=== PATIENT | male | born 1945 | race Caucasian/White ===

== ENCOUNTER → 2017-11-24 13:43 | Day surgery (SDC) | payer BC ==
[~2017-11-24 13:43] MED LIST: Buffered Lidocaine 0.9% SYRIN* 5 ML/SYR SYRINGE INTRADERM ONE; Buffered Lidocaine 0.9% SYRIN* 5 ML/SYR SYRINGE ONE; Bupivacaine 0.25% SDV* 30 ML ONE; Dexamethasone IV* 4 MG/ML 1 ML (4 MG) ONE; HYDROcodone/ACETAMIN 5-325 MG* 1 TAB PO PRN; Ketorolac INJ* 30 MG/ML 1 ML VIAL ONE; Midazolam concentrated* 5 MG/ML 1 ml VIAL ONE; Naloxone* 0.4 MG/ML 1 ML VIAL IV PRN; Ondansetron INJ* 2 MG/ML VIAL IV PRN; Ondansetron INJ* 2 MG/ML VIAL ONE; Propofol* 10 MG/ML 20 ML BTL IV PUSH ONE; ceFAZolin 2 GM PREMIX (*) 2 GM/50 ML BAG IVPB ONE; fentaNYL* 50 MCG/ML 2 ML VIAL (100 MCG VIAL) IV PRN; fentaNYL* 50 MCG/ML 2 ML VIAL (100 MCG VIAL) ONE; oxyCODONE TAB* 5 MG TAB PO PRN
[2017-11-24 17:01] VITALS: BP 130/78
--- NOTE | 2017-11-24 20:31 | RAD ---
Indication: Right middle finger injury in the proximal phalanx. Fluoroscopic services provided for referring physician. There are 11 spot images demonstrates percutaneous pinning of the proximal phalanx. IMPRESSION: Fluoroscopic services provided for referring physician for internal fixation of the proximal phalanx fracture.
--- NOTE | 2017-11-25 15:22 | OP ---
DATE OF OPERATION: 11/24/17 - [facility] DATE OF : 41 SURGEON: William Cannon MD PRIVATE WATCHMAN: CRICKET Jordan ANESTHESIOLOGIST: Aly Arora MD ANESTHESIA: General. PRE-OP DIAGNOSES: 1. Severely comminuted right long finger intraarticular proximal phalanx fracture. 2. Minimally displaced right middle finger middle phalanx fracture. POST-OP DIAGNOSES: 1. Severely comminuted right long finger intraarticular proximal phalanx fracture. 2. Minimally displaced right middle finger middle phalanx fracture. OPERATIVE PROCEDURE: 1. Closed reduction and percutaneous fixation of right middle finger intraarticular proximal phalanx fracture. 2. Closed treatment of right middle finger middle phalanx shaft fracture. INDICATIONS: Juancarlos had a 70-pound dumbbell come down on the finger right on the dorsal and proximal aspects of the proximal phalanx. There was significant deformity in the area, has a very comminuted fracture. Additionally, the dumb- foreman had also then struck the middle phalanx and caused a fracture there. He had been splinted. I talked to him about my desire to improve the alignment of the finger. I did not think that I would be able to piece back all of the fragments on the proximal phalanx and so I told him I would probably not open the fracture, but I would try to get it in as good of alignment as possible with some pins while it healed. He understands there is a risk of stiffness, risk of adhesions, risk of malunion. He wanted to proceed. ESTIMATED BLOOD LOSS: 2 mL. COMPLICATIONS: None. FINDINGS: As expected. DESCRIPTION OF PROCEDURE: Juancarlos was seen in the preoperative holding area. The correct site, side, and procedure were identified. We came back to the operating room, where the arm was prepped and draped in the usual fashion. Time -out was performed. I began by performing the closed reduction maneuver. Once I confirmed that I could get a reasonable reduction and confirmed that in the fact proximal phalanx fracture was simply too comminuted to open and align with the plate and screws, I did go ahead and take a 0.045 K-wire and introduced that on to the base of the radial aspect of the middle finger proximal phalanx through a larger articular piece. This was then driven up to the fracture site and then performed the closed reduction maneuver and had my assistant health educator advance the wire across the fracture. I checked the imaging. There was a very large dorsal cortical piece that had been driven down palmarly and there was a void dorsally. There was really no way to disimpact that piece other than opening the finger and so I decided to leave it alone. I then took a second K-wire on that radial side and spanned the fracture in similar fashion. I then took a third 0.045 K-wire and brought this on to the ulnar side of the base of the proximal phalanx and advanced this down to the subchondral bone distally in similar fashion. I checked my final fluoroscopic imaging. Things were looking well aligned, both clinically and on fluoroscopy. There was certainly that dorsal void, but there was nothing I could really do about that, so I thought as long as we had good length, alignment, and rotation, and we had this nicely spanned with the K-wires, we could go ahead and allow it to heal like that. I then took my imaging and I imaged the middle phalanx fracture. I decided this was well enough and lined up, so we will go ahead and treat this closed and there was no need for any pins. At this point, I went ahead and infiltrated the area with 0.25% plain Marcaine. I bent and clipped my pins. I dressed the pins with Xeroform, 4x4s, and some sterile Webril, and then some plaster slabs were used to create a dorsal and volar splint with the hand in the intrinsic plus position. Tourniquet was not used during the procedure. He was then taken to the recovery room in stable condition. [id number]/[facility] #: [id number] SOHAIL
== END | disposition home or self-care (01) ==
LOC: OR 13:43
PROVIDERS: ATTEND Orthopaedic Surgery Hand Surgery
DX: S62.612A Displaced fracture of proximal phalanx of right middle finger, initial encounter for closed fracture (principal); S62.622A Displaced fracture of middle phalanx of right middle finger, initial encounter for closed fracture; N40.0 Benign prostatic hyperplasia without lower urinary tract symptoms; W23.0XXA Caught, crushed, jammed, or pinched between moving objects, initial encounter; Y93.59 Activity, other involving other sports and athletics played individually; Y92.39 Other specified sports and athletic area as the place of occurrence of the external cause
CPT/HCPCS: 76000; C1776; J0690; J1100; J1885; J2250; J2405; J2704; J3010

== ENCOUNTER 2019-06-30 05:46 | Inpatient (IN) | payer BC ==
[~2019-06-30 05:46] MED LIST changes: -Buffered Lidocaine 0.9% SYRIN* 5 ML/SYR SYRINGE INTRADERM ONE; -Buffered Lidocaine 0.9% SYRIN* 5 ML/SYR SYRINGE ONE; +Buffered Lidocaine 1% SYRIN* 1 ML/SYRINGE INTRADERM ONE; -Bupivacaine 0.25% SDV* 30 ML ONE; -Dexamethasone IV* 4 MG/ML 1 ML (4 MG) ONE; -HYDROcodone/ACETAMIN 5-325 MG* 1 TAB PO PRN; -Ketorolac INJ* 30 MG/ML 1 ML VIAL ONE; -Midazolam concentrated* 5 MG/ML 1 ml VIAL ONE; -Naloxone* 0.4 MG/ML 1 ML VIAL IV PRN; -Ondansetron INJ* 2 MG/ML VIAL IV PRN; -Ondansetron INJ* 2 MG/ML VIAL ONE; -Propofol* 10 MG/ML 20 ML BTL IV PUSH ONE; -ceFAZolin 2 GM PREMIX (*) 2 GM/50 ML BAG IVPB ONE; -fentaNYL* 50 MCG/ML 2 ML VIAL (100 MCG VIAL) IV PRN; -fentaNYL* 50 MCG/ML 2 ML VIAL (100 MCG VIAL) ONE; -oxyCODONE TAB* 5 MG TAB PO PRN
--- OUTSIDE RECORDS SUMMARY | 2019-06-30 05:49 | XMS REPORT | Continuity of Care Document ---
:1945 External Reference #:[id number] Author Name Marshall Cramer MD (transmitted by agent of provider Elizabeth Coleman) Address [address] [place] [address] Problems Active Problems Provider Date Chronic cholecystitis with calculus Robert Cervantes M.D.,FACP Onset: 05/19 Note: sludge in GB Benign prostatic hypertrophy with Robert Cervantes M.D.,FACP Onset: 2016 outflow obstruction Note: sees Dr. Sharma Bilateral hearing loss Robert Cervantes M.D.,FACP Onset: 06/19/2017 Mantoux: positive Robert Cervantes M.D.,FACP Onset: 06/19/2017 Note: PPD POS History of excision of lamina of Robert Cervantes M.D.,FACP Onset: 2017 lumbar vertebra for decompression of spinal cord Strain of rotator cuff capsule Marshall Cramer MD Onset: 10/08/2018 Localized, primary osteoarthritis of Marshall Cramer MD Onset: 10/08/2018 the shoulder region Strain of rotator cuff capsule Marshall Cramer MD Onset: 11/06/2018 Social History Type Date Description Comments Sex Unknown Tobacco Use Start: Unknown Never Smoked Cigarettes Smoking Status Reviewed: 06/22/19 Never Smoked Cigarettes Smokeless Tobacco Never Used Smokeless Tobacco ETOH Use Occasionally consumes alcohol Tobacco Use Start: Unknown Patient has never smoked Recreational Drug Use Denies Drug Use Exercise Type/Frequency Exercises regularly Allergies, Adverse Reactions, Alerts Active Allergies Reaction Severity Comments Date Iodinated Diagnostic Agents Swelling (CT Dye) 06/22/2019 Inactive Allergies NKDA 01/24/2014 Medications Active Medications SIG Qnty Indications Ordering Provider Date Naproxen twice a day with 30tabs Robert Juarez 05/07/2018 375mg Tablets food heydi Cervantes M.D.,FACÁlvaro Omeprazole 1 by mouth twice 180caps Radha Tyrell, 05/05/2018 [address]mg [address]tiaz Capsules DR [place] Vitamin Mens daily (Double X Unknown Vitamin ) Doxazosin Mesylate 1 by mouth every Unknown 8mg day Tablets Saw [place] 1 by mouth twice Unknown 450mg a day Capsules Vitamin E/D-Alpha daily Unknown Natural 200Unit Capsules Fish Oil Concentrate 1 by mouth daily Unknown 1000mg Capsules Echinacea Plus daily Unknown Capsules Coconut Oil daily Unknown 1000mg Capsules Calcium Magnesium 750 otc once a day Unknown 300-300mg Tablets Travatan Z onr gtt to L eye Unknown 0.004% q hs Solution History Medications Augmentin 1 tab by mouth 20tabs Radha 12/28/2018 - 875-125mg Tablets twice a day Chente Santillan 01/07/2019 Methylprednisolone medrol pack, 21units J32.9 Belle Michaelnte, 12/24/2018 - 4mg TBPK take as 05/11/2019 directed Medications Administered in Office Medication SIG Qnty Indications Ordering Provider Date Triamcinolone (Kenalog) Marshall Cramer MD 02/04/2019 Injection Triamcinolone (Kenalog) Marshall Cramer MD 11/17/2018 Injection Triamcinolone (Kenalog) Marshall Cramer MD 11/06/2018 Injection Immunizations CPT Code Status Date Vaccine Lot # [id number] Given 10/02/2018 Pneumonia Vaccine [id number] Given 10/02/2018 Influenza Virus Vaccine, Quadrivalent, Split, [id number] Preservative Free 94772 Given 12/09/2017 Influenza Virus Vaccine, Quadrivalent, Split, [id number] Preservative Free 07714 Given 06/19/2017 Pneumococcal Conjugate Vaccine 13 Valent For [id number] Intramuscular Use 11350 Given 03/29/2005 Pneumonia Vaccine Vital Signs Date Vital Result Comment 06/22/2019 10:42am Height 72 inches 6'0" Weight 201.00 lb Heart Rate 60 /min BP Systolic Sitting 130 mmHg BP Diastolic Sitting 72 mmHg Respiratory Rate 16 /min Body Temperature 97.7 F Pain Level 4 BMI (Body Mass Index) 27.3 kg/m2 06/14/2019 2:57pm Height 72 inches 6'0" Weight 198.12 lb Heart Rate 69 /min BP Systolic 125 mmHg BP Diastolic 80 mmHg Body Temperature 96.7 F O2 % BldC Oximetry 98 % BMI (Body Mass Index) 26.9 kg/m2 Results Test Date Facility Test Result H/L Range Note Order 06/14/2019 [facility] In-House EKG reviewed by Dr. Capo Brown 02/04/2019 [facility] In House Inj/Aspir Major JT <pending> Or Bursa W/ US Procedures Date Code Description Status 06/22/2019 06000 Anoscopy Completed 06/22/2019 79445 Hemorrhoidectomy, Internal, By Rubber Band Ligation(S) Completed 06/14/2019 02638 EKG Tracing & Interpretation Completed 03/19/2019 15903 Hemorrhoidectomy, Internal, By Rubber Band Ligation(S) Completed 02/04/2019 91263 Inj/Aspir Major JT Or Bursa W/ US Completed 06/08/2018 [id number] Colonoscopy Completed Medical Devices Description No Information Available Encounters Type Date Location Provider Dx Diagnosis Office Visit 05/21/2019 Orthopedic Marshall Cramer MD M19.012 Primary 9:00a [facility] osteoarthritis, left shoulder Office Visit 05/11/2019 Orthopedic Marshall Carmer MD M19.012 Primary 1:15p Services Of Jose JuanMImtiazAImtiaz osteoarthritis, left shoulder S46.012D Strain of musc/tend the rotator cuff of left shoulder, subs Office Visit 03/19/2019 10:00a Surgical Meliton Delgadillo.2 [facility] Shayan Fortune M.D. hemorrhoids Office Visit 01/07/2019 8:15a Orthopedic Marshall Cramer M19.012 Primary Services Of MD levine, C.M.A. left shoulder S46.012D Strain of musc/tend the rotator cuff of left shoulder, subs Office Visit 12/29/2018 Neurosurgery Vassilios M41.9 Scoliosis, 8:30a Services Of Shayan De Paz MD unspecified M54.5 Low back pain M47.896 Other spondylosis, lumbar region Office Visit 12/24/2018 9:40a [facility] Rep[employer] Specialist Internal Belle Som, J32.9 Chronic sinusitis, Medicine - Suite unspecified R Assessments Date Code Description Provider 06/22/2019 M19.012 Primary osteoarthritis, left shoulder Marshall Cramer MD 06/22/2019 K64.2 Third degree hemorrhoids Kelby Magallanes MD, FACS 06/22/2019 S46.012D Strain of muscle(s) and tendon(s) of the Marshall Cramer MD rotator cuff of [facility] 06/14/2019 Z01.810 Encounter for preprocedural Shwetha Luong DO cardiovascular examination 05/21/2019 M19.012 Primary osteoarthritis, left shoulder Marshall Cramer MD 05/11/2019 M19.012 Primary osteoarthritis, left shoulder Marshall Cramer MD 05/11/2019 S46.012D Strain of muscle(s) and tendon(s) of the Marshall Cramer MD rotator cuff of lef 05/05/2019 M41.9 Scoliosis, unspecified Adryan De Paz MD 05/05/2019 M54.5 Low back pain Adryan De Paz MD 03/19/2019 K64.2 Third degree hemorrhoids Meliton Fortune M.D. 02/04/2019 M19.012 Primary osteoarthritis, left shoulder Marshall Cramer MD 02/04/2019 S46.012D Strain of muscle(s) and tendon(s) of the Marshall Craemr MD rotator cuff of lef 01/07/2019 M19.012 Primary osteoarthritis, left shoulder Marshall Cramer MD 01/07/2019 S46.012D Strain of muscle(s) and tendon(s) of the Marshall Cramer MD rotator cuff of lef 12/29/2018 M41.9 Scoliosis, unspecified Adryan De Paz MD 12/29/2018 M54.5 Low back pain Adryan De Paz MD 12/29/2018 M47.896 Other spondylosis, lumbar region Adryan De Paz MD 12/24/2018 J32.9 Chronic sinusitis, unspecified Belle Kearns, MD Plan of Treatment Future Appointment(s):07/13/2019 1:45 pm - Marshall Cramer MD at [facility]06/30/2019 7:30 am - Natividad Buchanan PA-C at [facility]06/30/2019 7:30 am - Marshall Cramer MD at [facility]07/14/2019 1:30 pm - Adryan De Paz MD at [facility]10/05/2019 3:20 pm - Belle Kearns MD at [facility] Internal Medicine - [facility]06/22/2019 - Marshall Cramer, MDM19.012 Primary osteoarthritis, left cscjfkocW63.012D Strain of muscle(s) and tendon(s) of the rotator cuff of lefFollow up:Follow up: 10-14 days post op Functional Status Description No Information Available Mental Status Description No Information Available Referrals Refer to Dr Reason for Referral Status Appt Aly Jessica MD Closed [address] [place] [address] [phone]
--- OUTSIDE RECORDS SUMMARY | 2019-06-30 05:49 | XMS REPORT | Continuity of Care Document ---
:1945 External Reference #:[id number] Author Name Natividad Buchanan PA-C Address [address] [facility], [place] [address] Problems Active Problems Provider Date Chronic cholecystitis [...] Juarez 05/07/2018 375mg Tablets food heydi Cervantes M.D.,JAMAL Omeprazole 1 by mouth twice 180caps Radha Santillan, 05/05/2018 20mg daily M.D. Capsules DR [place] Vitamin Mens daily (Double X Unknown Vitamin ) Doxazosin Mesylate 1 by mouth every Unknown 8mg day Tablets Saw [place] 1 by mouth twice Unknown 450mg a [...] Augmentin 1 tab by mouth 20tabs Radha Santillan, 12/28/2018 - 875-125mg twice a day M.D. 01/07/2019 Tablets Medications Administered in Office Medication SIG Qnty Indications Ordering Provider Date Triamcinolone (Kenalog) Marshall Cramer MD 02/04/2019 Injection Triamcinolone (Kenalog) Marshall Cramer MD 11/17/2018 Injection Triamcinolone (Kenalog) Marshall Cramer MD 11/06/2018 Injection Immunizations CPT Code Status Date Vaccine Lot # [id number] Given 10/02/2018 Pneumonia Vaccine [id number] 78578 Given 10/02/2018 Influenza Virus Vaccine, Quadrivalent, Split, [id number] Preservative Free 07783 Given 12/09/2017 Influenza Virus Vaccine, Quadrivalent, Split, [id number] Preservative Free 32900 Given 06/19/2017 Pneumococcal Conjugate Vaccine 13 Valent For [id number] Intramuscular Use 70231 Given 03/29/2005 Pneumonia Vaccine Vital Signs Date [...] Date Facility Test Result H/L Range Note CBC Auto 06/22/2019 [facility] White Blood 5.6 10^3/uL Normal 3.5-10.[address] [place] [address] [phone] Red Blood Count 4.41 10^6/uL Normal 4.18-5.48 Hemoglobin 15.0 g/dL Normal 14.0-18.0 Hematocrit 44 % Normal 42-52 Mean Corpuscular Volume 100 fL High 80-94 Mean Corpuscular Hemoglobin 34 pg High 27-31 Mean Corpuscular HGB Conc 34 g/dL Normal 31-36 Red Cell Distribution Width 14 % Normal 10-15 Platelet Count 189 10^3/uL Normal 150-450 Mean Platelet Volume 9.1 fL Normal 7.4-10.4 Abs Neutrophils 2.6 10^3/uL Normal 1.5-7.7 Abs Lymphocytes 2.1 10^3/uL Normal 1.0-4.8 Abs Monocytes 0.7 10^3/uL Normal 0-0.8 Abs Eosinophils 0.2 10^3/uL Normal 0-0.6 Abs Basophils 0.1 10^3/uL Normal 0-0.2 Abs Nucleated RBC 0.0 10^3/uL Granulocyte % 45.5 % Lymphocyte % 36.7 % Monocyte % 12.3 % Eosinophil % 4.1 % Basophil % 1.4 % Nucleated Red Blood Cells % 0.0 Urinalysis Profile 06/22/2019 [facility] Urine Color Yellow [address] [place] [address] [phone] Urine Appearance Clear Urine Specific [place] 1.024 Normal 1.010-1.030 Urine pH 6.0 Normal 5-9 Urine Urobilinogen Negative Negative Urine Ketones Negative Negative Urine Protein Negative Negative Urine Leukocytes Trace Abnormal Negative Urine Blood Negative Negative * * Abnormal Negative 1 Urine Nitrite Negative Negative Urine Bilirubin Negative Negative Urine Glucose Negative Negative Urine White Blood Cell Trace(0-5/hpf) Absent Urine Red Blood Cell Trace(0-2/hpf) Absent Urine Bacteria Absent Absent Inr/Protime 06/22/2019 [facility] Inr 1.03 Normal 0.82-1.[address] [place] [address] [phone] Laboratory test 06/22/2019 [facility] Partial 36.4 Normal 26.0 -38.[address] [place] [address] Time PTT [phone] Type & Screen 06/22/2019 [facility] Patient A Positive [address] [place] [address] [phone] Antibody Screen NEGATIVE Comp Metabolic 06/22/2019 [facility] Sodium 136 mmol/L Normal 135-[address] [place] [address] [phone] Potassium 4.3 mmol/L Normal 3.5-5.0 Chloride 103 mmol/L Normal 101-111 Co2 Carbon Dioxide 29 mmol/L Normal 22-32 Anion Gap 4 mmol/L Normal 2-11 Glucose 93 mg/dL Normal 70-100 Blood Urea Nitrogen 28 mg/dL High 6-24 Creatinine 0.98 mg/dL Normal 0.67-1.17 BUN/Creatinine Ratio 28.6 High 8-20 Calcium 9.9 mg/dL Normal 8.6-10.3 Total Protein 6.8 g/dL Normal 6.4-8.9 Albumin 4.3 g/dL Normal 3.2-5.2 Globulin 2.5 g/dL Normal 2-4 Albumin/Globulin Ratio 1.7 Normal 1-3 Total Bilirubin 0.60 mg/dL Normal 0.2-1.0 Alkaline Phosphatase 48 U/L Normal 34-104 Alt 22 U/L Normal 7-52 Ast 24 U/L Normal 13-39 Egfr Non- 74.4 >60 Egfr 90.0 >60 3 Urine Culture And 06/22/2019 [facility] Urine Culture SEE RESULT [address] [place] [address] [phone] Order 06/14/2019 [facility] In-House EKG reviewed by Dr. Capo Brown 02/04/2019 [facility] In House Inj/Aspir <pending> Major JT Or Bursa W/ US 1 *Ascorbic acid is present which may interfere with detection of blood. 2 Standard intensity warfarin therapeutic range: 2.0-3.0 High intensity warfarin therapeutic range: 2.5-3.5 3 Because ethnic data is not always readily available, this report includes an eGFR for both -Americans and non- Americans. The National Kidney Disease Education Program (NKDEP) does not endorse the use of the MDRD equation for patients that are not between the ages of 18 and 70, are , have extremes of body size, muscle mass, or nutritional status, or are non- or non-. According to the National Kidney Foundation, irrespective of diagnosis, the stage of the disease is based on the level of kidney function: Stage Description GFR(mL/min/1.73 m(2)) 1 Kidney damage with normal or decreased GFR 90 2 Kidney damage with mild decrease in GFR 60-89 3 Moderate decrease in GFR 30-59 4 Severe decrease in GFR 15-29 5 Kidney failure <15 (or dialysis) 4 SEE RESULT BELOW Name: JUANCARLOS SANCHEZ Cody : [address]: Marshall Cramer MD Acct: [id number] Unit: [id number] AGE: 74 Location: [facility] Re06/22/19 SEX: M Status: REG REF SPEC: [id number] TOM: 06/22/19-1616 [facility] DR: Marshall Cramer MD REQ: [id number] RECD: 06/22/19 STATUS: COMP _ SOURCE: URINE SPDES: ORDERED: Urine Culture QUERIES: Urine Source: Clean Catch Procedure Result Reported Site Urine Culture Final 06/23/19- 1225 ML No Growth (<1,000 CFU/mL) * ML - Main Lab . END OF REPORT DEPARTMENT OF PATHOLOGY, [address] [place] [address] Dominick Matta M.D. Director [facility] # [id number] Procedures Date Code Description Status 06/22/2019 22437 Anoscopy Completed 06/22/2019 97662 Hemorrhoidectomy, Internal, By Rubber Band Ligation(S) Completed 06/14/2019 37200 EKG Tracing & Interpretation Completed 03/19/2019 71645 Hemorrhoidectomy, Internal, By Rubber Band Ligation(S) Completed 02/04/2019 10284 Inj/Aspir Major JT Or Jocelina W/ US Completed 06/08/2018 [id number] Colonoscopy Completed Medical Devices Description No Information Available Encounters Type Date Location Provider Dx Diagnosis Office Visit 05/21/2019 Orthopedic Marshall Cramer MD M19.012 Primary 9:00a [facility] Of [facility] osteoarthritis, left shoulder Office Visit 05/11/2019 Mazin Cramer MD M19.012 Primary 1:15p Services Of EdiA. osteoarthritis, left shoulder S46.012D Strain of musc/tend the rotator cuff of left shoulder, subs Office Visit 05/05/2019 Neurosurgery Vassilios M41.9 Scoliosis, 10:30a Services Of Shayan De Paz MD unspecified M54.5 Low back pain Z98.1 Arthrodesis status Office Visit 03/19/2019 10:00a Surgical Meliton Garcia K64.2 Third degree [facility] Shayan Fortune M.D. hemorrhoids Office Visit 01/07/2019 8:15a Orthopedic Marshall Cramer M19.012 Primary Services Of MD levine C.M.A. left shoulder S46.012D Strain of musc/tend the rotator cuff of left shoulder, subs Office Visit 12/29/2018 Neurosurgery Vassilios M41.9 Scoliosis, 8:30a Services Of Shayan De Paz MD unspecified M54.5 Low back pain M47.896 Other spondylosis, lumbar region Assessments Date Code Description Provider 06/22/2019 M19.012 Primary osteoarthritis, left shoulder Marshall Cramer MD 06/22/2019 K64.2 Third degree hemorrhoids Kelby Magallanes MD, FACS 06/22/2019 S46.012D Strain of muscle(s) and tendon(s) of the Marshall Cramer MD rotator cuff of lef 06/14/2019 Z01.810 Encounter for preprocedural Shwetha Luong DO cardiovascular examination 05/21/2019 M19.012 Primary osteoarthritis, left shoulder Marshall Cramer MD 05/11/2019 M19.012 Primary osteoarthritis, left shoulder Marshall Cramer MD 05/11/2019 S46.012D Strain of muscle(s) and tendon(s) of the Marshall Cramer MD rotator cuff of lef 05/05/2019 M41.9 Scoliosis, unspecified Vascarolann De Paz MD 05/05/2019 M54.5 Low back pain Adryan De Paz MD 05/05/2019 Z98.1 Arthrodesis status Adryan De Paz MD 03/19/2019 K64.2 Third degree hemorrhoids Meliton Fortune M.D. 02/04/2019 M19.012 Primary osteoarthritis, left shoulder Marshall Cramer MD 02/04/2019 S46.012D Strain of muscle(s) and tendon(s) of the Marshall Cramer MD rotator cuff of [facility] 01/07/2019 M19.012 Primary osteoarthritis, left shoulder Marshall Cramer MD 01/07/2019 S46.012D Strain of muscle(s) and tendon(s) of the Marshall Cramer MD rotator cuff of [facility] 12/29/2018 M41.9 Scoliosis, unspecified Adryan De Paz MD 12/29/2018 M54.5 Low back pain Adryan De Paz MD 12/29/2018 M47.896 Other spondylosis, lumbar region Adryan De Paz MD Plan of Treatment Future Appointment(s):07/13/2019 1:45 pm - Marshall Cramer MD at [facility]06/30/2019 7:30 am - Natividad Buchanan PA-C at [facility]06/30/2019 7:30 am - Marshall Cramer MD at [facility]07/14/2019 1:30 pm - Adryan De Paz MD at [facility]10/05/2019 3:20 pm - Belle Kearns MD at [facility] Internal Medicine - [facility]06/22/2019 - Marshall Cramer, MDM19.012 Primary osteoarthritis, left hivitqbeQ22.012D Strain of muscle(s) and tendon(s) of the rotator cuff of [facility] up:Follow up: 10-14 days post op Functional Status Description No Information Available Mental Status Description No Information Available Referrals Refer to Dr Reason for Referral Status Appt Date Aly Arora MD Closed [address] [place] [address] [phone]
--- OUTSIDE RECORDS SUMMARY | 2019-06-30 05:49 | XMS REPORT | Continuity of Care Document ---
:1945 External Reference #:[id number] Author Name Shwetha Luong DO (transmitted by agent of provider Liseth Garcia) Address [address] [place] [address] Problems Active Problems Provider Date Chronic cholecystitis [...] Unknown Never Smoked Cigarettes Smoking Status Reviewed: 06/14/19 Never Smoked Cigarettes Smokeless Tobacco Never Used Smokeless Tobacco ETOH Use Occasionally consumes alcohol Tobacco Use Start: Unknown Patient has never smoked Recreational Drug Use Denies Drug Use Exercise Type/Frequency Exercises regularly Allergies, Adverse Reactions, Alerts Active Allergies Reaction Severity Comments Date Cat Scan Dye Severe swelling 06/19/2017 Inactive Allergies NKDA 01/24/2014 Medications Active Medications SIG Qnty Indications Ordering Provider Date Naproxen twice a day with 30tabs Robert Juarez 05/07/2018 375mg Tablets food heydi Cervantes M.D.,FACP Omeprazole 1 by mouth twice 180caps Radha Santillan, 05/05/2018 20mg daily M.DImtiaz Capsules DR [place] Vitamin Mens daily (Double X Unknown Vitamin ) Doxazosin Mesylate 1 by mouth every Unknown 8mg day Tablets Saw [place] 1 by mouth twice Unknown 450mg a [...] Santillan 01/07/2019 Methylprednisolone medrol pack, 21units J32.9 [place] MichaelKearns, 12/24/2018 - 4mg TBPK take as 05/11/2019 directed Medications Administered in Office Medication SIG Qnty Indications Ordering Provider Date Triamcinolone (Kenalog) Marshall Cramer MD 02/04/2019 Injection Triamcinolone (Kenalog) Marshall Cramer MD 11/17/2018 Injection Triamcinolone (Kenalog) Marshall Cramer MD 11/06/2018 Injection Immunizations CPT Code Status Date Vaccine Lot # [id number] Given 10/02/2018 Pneumonia Vaccine [id number] Given 10/02/2018 Influenza Virus Vaccine, Quadrivalent, Split, [id number] Preservative Free [id number] Given 12/09/2017 Influenza Virus Vaccine, Quadrivalent, Split, [id number] Preservative Free [id number] Given 06/19/2017 Pneumococcal Conjugate Vaccine 13 Valent For [id number] Intramuscular Use 59650 Given 03/29/2005 Pneumonia Vaccine Vital Signs Date Vital Result Comment 06/14/2019 2:57pm Height 72 inches 6'0" Weight 198.12 lb Heart Rate 69 /min BP Systolic 125 mmHg BP Diastolic 80 mmHg Body Temperature 96.7 F O2 % BldC Oximetry 98 % BMI (Body Mass Index) 26.9 kg/m2 05/21/2019 8:58am Height 72 inches 6'0" Weight 195.00 lb Respiratory Rate 20 /min BMI (Body Mass Index) 26.4 kg/m2 Results Test Date Facility Test Result H/L Range Note Xray 02/04/2019 [facility] In House Inj/Aspir Major JT Or Bursa W/ <pending> US Procedures Date Code Description Status 03/19/2019 40264 Hemorrhoidectomy, Internal, By Rubber Band Ligation(S) Completed 02/04/2019 77964 Inj/Aspir Major JT Or Bursa W/ US Completed 06/08/2018 67967550 Colonoscopy Completed Medical Devices Description No Information Available Encounters Type Date Location Provider Dx Diagnosis Office Visit 06/14/2019 [facility] Internal Shwetha Luong, Z01.810 Encounter for 3:00p Medicine - Suite DO preprocedural R cardiovascular examination Office Visit 05/21/2019 Orthopedic Nenita Grey9.012 Primary 9:00a Services Of osteoarthritis, left C.M.A. shoulder Office Visit 05/11/2019 Nenita Meade9.012 Primary 1:15p Services Of osteoarthritis, left C.M.A. shoulder S46.012D Strain of musc/tend the rotator cuff of left shoulder, subs Office Visit 03/19/2019 10:00a Surgical Meliton Delgadillo.2 [facility] Fortune M.D. hemorrhoids Office Visit 01/07/2019 8:15a Orthopedic Marshall Cramer M19.012 Primary Services Of osteoarthritis, C.M.A. left shoulder S46.012D Strain of musc/tend the rotator cuff of left shoulder, subs Office Visit 12/29/2018 Neurosurgery Vassilios M41.9 Scoliosis, 8:30a Services Of Shayan De Paz MD unspecified M54.5 Low back pain M47.896 Other spondylosis, lumbar region Office Visit 12/24/2018 9:40a Shayan Internal [place] J32.9 Chronic sinusitis, Medicine - Suite unspecified R Assessments Date Code Description Provider 06/14/2019 Z01.810 Encounter for preprocedural Shwetha DO Cherise cardiovascular examination 05/21/2019 M19.012 Primary osteoarthritis, left shoulder Marshall Cramer MD 05/11/2019 M19.012 Primary osteoarthritis, left shoulder Marshall Cramer MD 05/11/2019 S46.012D Strain of muscle(s) and tendon(s) of the Marshall Cramer MD rotator cuff of [facility] 05/05/2019 M41.9 Scoliosis, unspecified Adryan De Paz MD 05/05/2019 M54.5 Low back pain Adryan De Paz MD 03/19/2019 K64.2 Third degree hemorrhoids Meliton Fortune M.D. 02/04/2019 M19.012 Primary osteoarthritis, left shoulder Marshall Cramer MD 02/04/2019 S46.012D Strain of muscle(s) and tendon(s) of the Marshall Cramer MD rotator cuff of [facility] 01/07/2019 M19.012 Primary osteoarthritis, left shoulder Marshall Cramer MD 01/07/2019 S46.012D Strain of muscle(s) and tendon(s) of the Marshall Cramer MD rotator cuff of [facility] 12/29/2018 M41.9 Scoliosis, unspecified Adryan De Paz MD 12/29/2018 M54.5 Low back pain Adryan De Paz MD 12/29/2018 M47.896 Other spondylosis, lumbar region Adryan De Paz MD 12/24/2018 J32.9 Chronic sinusitis, unspecified Belle Kearns MD Plan of Treatment Future Appointment(s):06/30/2019 7:30 am - Natividad Buchanan PA-C at [facility]06/30/2019 7:30 am - Marshall Cramer MD at [facility].06/22/2019 1:30 pm - Marshall Cramer MD at [facility].07/14/2019 1:30 pm - Adryan De Paz MD at [facility]10/05/2019 3:20 pm - Belle Kearns MD at [facility] - Shwetha Luong, DOZ01.810 Encounter for preprocedural cardiovascular examinationNew Orders:EKG, Ordered: 06/14/19 Functional Status Description No Information Available Mental Status Description No Information Available Referrals Refer to Reason for Referral Status Appt Date Aly Arora MD Closed [address] [place] [address] [phone]
[2019-06-30] MEDS ORDERED: Lactated Ringers 1000 ML Bag* 1,000 ML IV SCH (06:00)
[2019-06-30] MEDS ORDERED: Buffered Lidocaine 1% SYRIN* 1 ML/SYRINGE INTRADERM ONE (06:14)
[2019-06-30] MEDS ORDERED: ceFAZolin 2 GM in NS PREMIX(*) 2 GM/100 ML BAG IVPB ONE (06:15)
[2019-06-30] MEDS ORDERED: Ropivacaine 0.2% * 2 MG/ML VIAL ONE (06:54)
[2019-06-30] MEDS ORDERED: Lidocaine 2% PF * 5 ML VIAL ONE (07:16)
[2019-06-30] MEDS ORDERED: Propofol* 10 MG/ML 20 ML BTL ONE (07:16)
[2019-06-30] MEDS ORDERED: ROPIVACAINE 5 MG/ML 30 ML BTL (0.5%) ONE (07:17)
[2019-06-30] MEDS ORDERED: Midazolam* 1 MG/ML 2 ML VIAL (2 MG) ONE (07:18)
[2019-06-30] MEDS ORDERED: fentaNYL* 50 MCG/ML 2 ML VIAL (100 MCG VIAL) ONE (07:18)
[2019-06-30] MEDS ORDERED: Rocuronium* 10 MG/ML VIAL ONE (07:20)
[2019-06-30] MEDS ORDERED: Phenylephrine 10 MG/ML VIAL* 1 ML VIAL ONE (07:49)
[2019-06-30] MEDS ORDERED: EPHEDrine (Pressors)* 50 MG/ML VIAL ONE (07:55)
[2019-06-30] MEDS ORDERED: KETAMINE HCL* 50 MG/ML 10 ML VIAL ONE (07:57)
[2019-06-30] MEDS ORDERED: VASOPRESSIN 20 UNITS/ML 1 ML VIAL ONE (07:57)
[2019-06-30] MEDS ORDERED: HYDROmorphone INJ1* 1 MG/ML SYRINGE IV PRN (08:31)
[2019-06-30] MEDS ORDERED: DiMENhydriNATE IV* 50 MG/ML VIAL IV PUSH PRN (08:31)
[2019-06-30] MEDS ORDERED: Naloxone* 0.4 MG/ML 1 ML VIAL IV PRN (08:31)
[2019-06-30] MEDS ORDERED: oxyCODONE TAB* 5 MG TAB PO PRN (08:31)
[2019-06-30] MEDS ORDERED: Ketorolac INJ* 30 MG/ML 1 ML VIAL ONE ×2 (08:33→12:16)
[2019-06-30] MEDS ORDERED: Ondansetron INJ* 2 MG/ML VIAL ONE ×2 (08:33→12:16)
[2019-06-30] MEDS ORDERED: Metoclopramide IV* 5 MG/ML 2 ML VIAL ONE ×2 (08:33→12:16)
[2019-06-30] MEDS ORDERED: Acetaminophen IV 1GM/100ML * 100 ML ONE (08:33)
[2019-06-30] MEDS ORDERED: Glycopyrrolate IV* 0.2 MG/ML 1 ML VIAL ONE (09:50)
[2019-06-30] MEDS ORDERED: Neostigmine Methylsulfate* 1 MG/ML 10 ML VIAL (1 mg/ml) ONE (09:50)
[2019-06-30] MEDS ORDERED: oxyCODONE/Acetamin 5/325 MG* TAB PO PRN (10:23)
[2019-06-30] MEDS ORDERED: Polyethylene Glycol 3350* 17 GM PACKET PO PRN (10:23)
[2019-06-30] MEDS ORDERED: diPHENhydraMINE PO* 25 MG PO PRN (10:23)
[2019-06-30] MEDS ORDERED: Magnesium Hydroxide LIQ* 30 ML UDC PO PRN (10:23)
[2019-06-30] MEDS ORDERED: diPHENhydraMINE IV* 50 MG/ML 1 ml VIAL (BENADRYL) IV PRN (10:23)
[2019-06-30] MEDS ORDERED: Bisacodyl SUPP* 10 MG SUPP PR PRN (10:23)
[2019-06-30] MEDS ORDERED: traMADol TAB* 50 MG PO PRN (10:23)
[2019-06-30] MEDS ORDERED: Ondansetron INJ* 2 MG/ML VIAL IV PRN (10:23)
[2019-06-30] MEDS ORDERED: Ondansetron ODT TAB* 4 MG PO PRN (10:23)
[2019-06-30] MEDS ORDERED: Temazepam CAP* 15 MG PO PRN (10:23)
[2019-06-30] MEDS: Lactated Ringers 1000 ML Bag* 1,000 ML IV SCH ×2 (11:32→21:23)
[2019-06-30] MEDS ORDERED: Dexamethasone IV* 4 MG/ML 1 ML (4 MG) ONE (12:16)
[2019-06-30] MEDS ORDERED: Sugammadex * 200 MG/2 ML VIAL IV PUSH ONE (12:24)
[2019-06-30] MEDS: Acetaminophen TAB* 325 MG PO SCH ×2 (14:34→23:14)
[2019-06-30] MEDS: ceFAZolin 1 GM ADVAN(*) 1 GM in NS 0.9% 50 ML* 50 ML IVPB SCH (16:04)
[2019-06-30] MEDS: oxyCODONE TAB* 5 MG TAB PO PRN ×2 (17:36→22:50)
[2019-06-30] MEDS: oxyCODONE/Acetamin 5/325 MG* TAB PO PRN (19:50)
[2019-06-30] MEDS: Cyclobenzaprine TAB* 10 MG PO PRN (19:50)
[2019-06-30] MEDS ORDERED: Pantoprazole TAB * 40 MG TAB PO SCH (21:00)
[2019-06-30] MEDS ORDERED: Doxazosin TAB* 2 MG PO SCH (21:00)
[2019-06-30] MEDS ORDERED: Latanoprost 0.005%* 2.5 ml BTL LEFT EYE SCH (21:00)
[2019-06-30] MEDS: Magnesium Hydroxide LIQ* 30 ML UDC PO SCH (21:05)
[2019-06-30] MEDS: Docusate CAP* 100 MG PO SCH (21:06)
[2019-06-30] MEDS: Ascorbic Acid TAB* 500 MG PO SCH (21:12)
[2019-06-30] MEDS: Morphine 4 MG/ML VIAL (1 ml) 4 MG/ML VIAL IV PRN ×2 (21:12→23:20)
[2019-07-01] MEDS: ceFAZolin 1 GM ADVAN(*) 1 GM in NS 0.9% 50 ML* 50 ML IVPB SCH ×2 (00:06→07:52)
[2019-07-01] MEDS: oxyCODONE/Acetamin 5/325 MG* TAB PO PRN ×3 (01:19→13:20)
[2019-07-01] MEDS: Morphine 4 MG/ML VIAL (1 ml) 4 MG/ML VIAL IV PRN (02:23)
[2019-07-01 05:01] LABS: Urine Appearance Clear; Urine Bilirubin Negative (Negative); Urine Blood Negative (Negative); Urine Color Yellow; Urine Glucose Negative (Negative); Urine Ketones Trace (Negative); Urine Nitrite Negative (Negative); Urine Protein Negative (Negative); Urine Urobilinogen Negative (Negative)
[2019-07-01] MEDS: Cyclobenzaprine TAB* 10 MG PO PRN (06:33)
[2019-07-01] MEDS: oxyCODONE TAB* 5 MG TAB PO PRN ×2 (06:34→11:10)
[2019-07-01] MEDS: Acetaminophen TAB* 325 MG PO SCH ×2 (06:37→13:21)
[2019-07-01 06:45] LABS: Hematocrit 35 % (42-52); Hemoglobin 12.2 g/dL (14.0-18.0); Mean Platelet Volume 8.9 fL (7.4-10.4); Platelet Count 150 10^3/uL (150-450)
[2019-07-01 07:11] LABS: BUN/Creatinine Ratio 22.3 (8-20); Calcium 8.3 mg/dL (8.6-10.3); EGFR African American 94.4 (>60); Potassium 4.5 mmol/L (3.5-5.0)
[2019-07-01] MEDS: Docusate CAP* 100 MG PO SCH (07:52)
[2019-07-01] MEDS: Magnesium Hydroxide LIQ* 30 ML UDC PO SCH (07:52)
[2019-07-01] MEDS: Lactated Ringers 1000 ML Bag* 1,000 ML IV SCH (07:52)
[2019-07-01] MEDS: Ascorbic Acid TAB* 500 MG PO SCH (07:53)
--- NOTE | 2019-07-01 10:40 | OP ---
CC: PCP OPERATIVE REPORT: DATE OF OPERATION: 06/30/19 DATE OF : 41 SURGEON: Marshall Cramer MD. OYSTER OPENER: CRICKET Oliva. An virtual customer assistant was needed for the entirety of the case to help with positioning, retraction, and utilized all portions of the case. ANESTHESIOLOGIST: Dr. Jacobo. ANESTHESIA: General with interscalene block. PRE-OP DIAGNOSIS: Left shoulder severe glenohumeral arthritis with an intact rotator cuff. POST-OP DIAGNOSIS: Left shoulder severe glenohumeral arthritis with an intact rotator cuff. OPERATIVE PROCEDURE: Left anatomic shoulder replacement and open biceps tenodesis. COMPLICATIONS: None. ESTIMATED BLOOD LOSS: About 150. IMPLANTS USED: A 28 Simpliciti, size 2 nucleus with a size 48 head and Aequalis Perform Cortiloc peg glenoid size L40. COMPLICATIONS: None. DISPOSITION: Stable. INDICATIONS: Juancarlos Vega is a 74-year-old active gentleman who has had persistent shoulder pain. He has failed conservative management including physical therapy, antiinflammatories, intraarticular injections. He has had imaging that confirmed that he has no rotator cuff tear. He has elected to proceed with surgery. Risks and benefits discussed related to, but not limited to, bleeding; infection; damage to nerves, vessels, surrounding structures; wound nonhealing; persistent pain; need for further surgery; scarring; stiffness ; incomplete relief of symptoms; risks of anesthesia. DESCRIPTION OF PROCEDURE: The patient was greeted in the preoperative area by the attending surgeon. Correct extremity was marked. Consent was confirmed. The patient underwent interscalene nerve block by the anesthesiologist, after which he was brought back to the operating suite. He was placed in the supine position on the operating table. He then underwent general anesthesia and endotracheal intubation, after which he was appropriately positioned in the left lazy beach chair position. The left arm was then prepped and draped in the usual sterile fashion beginning with chlorhexidine soap, scrub, and alcohol wipe and a final prep with ChloraPrep. After appropriate surgical pause indicating site, side, procedure, administration of antibiotics, a 15-blade was used to made a deltopectoral incision laterally to expose the deltoid, which was very robust and muscular. The deltopectoral interval was identified. The cephalic vein was taken laterally with the deltoid laterally. There were abundant deltoid adhesions, which were released using the Fuchs. Once this was done, the clavipectoral fascia was released as well. Approximately one-third of the CA ligament was released. The pec was identified. The proximal 1 to 1.5 cm was then released. The biceps was then lateralized and tenotomized and was then tenodesed to the pec using a heavy nonabsorbable suture. The biceps was tenotomized proximal to that and followed into the joint. Biceps had obvious tendinosis and tendonitis. The dissection was taken proximally. The subscap was identified and this was then released in a subscap peel fashion. It was tied with #5 Ethibond suture. The shoulder was then gently externally rotated. There was a large anterior inferior spur about the humeral head, which was released using an osteotome. The capsular ligaments and soft tissue were then released as well with care not to damage the nerve or vessels. Prior to releasing the subscap, the blood supply was identified and then suture ligated. Once the head was exposed, the rotator cuff supraspinatus was found to be intact. Retractors were placed to prevent any damage. Once it was exposed, it was provisionally marked and a head and neck cut was then made. Then the humeral cut was free handed. A size 1 nucleus was placed and protection plate was placed after the humeral surface was reamed. The attention was then directed to the glenoid. Retractors were placed posterior to the glenoid, which was exposed. It had grade 4 changes. The subscap was released off its thick adhesions. There was significant amount of synovitis in the shoulder. The superior labrum, anterior , and inferior labrum were released. Posterior labrum was also released with care to prevent damage to the inferior structures. This exposed the glenoid in its entirety. Once this was done, a sizing guide was then placed and L40 was found to be appropriate fit to match the concavity of the surface, although none of the guides matched perfectly. Size L40 due to the patient's size. The appropriate guide was then placed and the guidewire was placed in the center of the glenoid, was found to be appropriate. The center drill was then drilled and the reaming then began. Care was taken to prevent damage to the other structures with reaming. Once this was complete, the L40 guide was then placed and then 3 interlocking pegs were then drilled. The wounds were then copiously irrigated with sterile saline. A trial was then placed and it was found to fit appropriately. The wounds were then copiously irrigated and the peg holes were dried carefully. Cement was mixed on the back table and placed in the 3 pegs. The final implant was brought to the field and then impacted into position and held for approximately 8 minutes. It was found to be well seated and found to be appropriately positioned. At this point, attention was directed to the humerus again. Humerus was brought through the wound and then the protection plate was removed. The size 1 nucleus was also removed. Three transosseous tunnels were then placed for subscap repair. These were #5 Ethibond sutures. A size 15 head was first chosen. This was found to be a little bit too big and I was concerned for overstuffing, so a size 48 was chosen and found to fit appropriately. He had a good anterior and posterior glide and pushed back equal with appropriate tension in the subscap. Once this was chosen, final implants were opened with size 48 head and a size 2 nucleus. The trial implants were removed and the 3 transosseous tunnels were then drilled with #5 Ethibond sutures for subscap closure. The final implants were then brought to the field and impacted into position. The shoulder was then reduced and found to have a similar shuck and appropriate motion. The wounds were then copiously irrigated with sterile saline. The subscap was then closed using the previously passed sutures in horizontal mattress configuration and interval closure was then also done with #2 Ethibond suture. This allowed for closure and repair of the rotator cuff. The shoulder was taken through range of motion , forward flexion to about 150, external rotator to about 60. The wound was then copiously irrigated with sterile saline. Deltopectoral interval was closed with #2 Ethibond and the skin was closed in layers with 3-0 Monocryl. Sterile dressings were applied. A Cryo/Cuff and an UltraSling were applied. He was awoken from anesthesia and transferred to the PACU in stable condition. POSTOPERATIVE PLAN: He will be nonweightbearing. He will be in the sling for 6 weeks. He will be discharged on pain medications. DVT prophylaxis was considered but deferred due to no previous personal or family history. He will be admitted probably 24 hours for antibiotics and for pain management. He potentially be discharged on postop day 1. I will see the patient back in 10 to 14 days with repeat x-rays. Postoperative x-rays were evaluated and found to be acceptable. [id number]/[facility] #: [id number] MTDD
[2019-07-01] MEDS ORDERED: Enoxaparin(*) 40 MG/0.4 ML SYR SUBCUT SCH (12:00)
--- NOTE | 2019-07-01 13:50 | PN ---
Progress Note - Progress Note Date of Service: 07/01/19 SOAP: Subjective: []Pt seen at bedside. He feels well with well controlled left shoulder pain. Denies CP, SOB, dizziness, nausea. Had difficulty urinating last night and quinn was placed, quinn was removed this morning with no urination since. Objective: []Gen: Appears well, NAD LUE: Left shoulder dressing CDI, f/e at wrist and digits intact. Okay, cross finger, thumbs up intact. Sensation intact to light touch throughout LUE, cap refill less than two seconds distally. Assessment: []POD 1 sp left anatomic shoulder replacement and open biceps tenodesis Plan: [] NWB LUE. PROM only shoulder no FF/abd past 90, No ER past 25 ok AROM elbow wrist and hand Urinary retention, has not urinate since quinn removal this morning. Discussed with Dr Davis who recommends replace quinn, to discharge patient with quinn in place with follow up friday for voiding trial. Vital Signs Temp 98.4 F 07/01/19 11:31 Pulse 62 07/01/19 11:31 Resp 16 07/01/19 13:20 BP 113/59 07/01/19 11:31 Pulse Ox 99 07/01/19 11:31 Intake & Output 06/30/19 07/01/19 07/01/19 18:59 06:59 18:59 Intake Total 2700 1983 360 Output Total 100 1050 Balance 2600 933 360 Intake: IV Fluids 2500 1003 ABX - CEFAZOLIN 55 LR 2500 948 Oral 200 980 360 Output: Urine 100 75 Quinn 975 Other: # Bowel Movements 0 Laboratory Last Values Hgb 12.2 g/dL (14.0-18.0) L 07/01/19 06:23 Hct 35 % (42-52) L 07/01/19 06:23 Plt Count 150 10^3/uL (150-450) 07/01/19 06:23 MPV 8.9 fL (7.4-10.4) 07/01/19 06:23 Sodium 133 mmol/L (135-145) L 07/01/19 06:23 Potassium 4.5 mmol/L (3.5-5.0) 07/01/19 06:23 Chloride 103 mmol/L (101-111) 07/01/19 06:23 Carbon Dioxide 27 mmol/L (22-32) 07/01/19 06:23 Anion Gap 3 mmol/L (2-11) 07/01/19 06:23 BUN 21 mg/dL (6-24) 07/01/19 06:23 Creatinine 0.94 mg/dL (0.67-1.17) 07/01/19 06:23 Est GFR ( Amer) 94.4 (>60) 07/01/19 06:23 Est GFR (Non-Af Amer) 78.0 (>60) 07/01/19 06:23 BUN/Creatinine Ratio 22.3 (8-20) H 07/01/19 06:23 Glucose 140 mg/dL (70-100) H 07/01/19 06:23 Calcium 8.3 mg/dL (8.6-10.3) L 07/01/19 06:23 Urine Color Yellow 07/01/19 04:45 Urine Appearance Clear 07/01/19 04:45 Urine pH 5.0 (5-9) 07/01/19 04:45 Ur Specific [place] 1.030 (1.010-1.030) 07/01/19 04:45 Urine Protein Negative (Negative) 07/01/19 04:45 Urine Ketones Trace (Negative) A 07/01/19 04:45 Urine Blood Negative (Negative) 07/01/19 04:45 Urine Nitrate Negative (Negative) 07/01/19 04:45 Urine Bilirubin Negative (Negative) 07/01/19 04:45 Urine Urobilinogen Negative (Negative) 07/01/19 04:45 Ur Leukocyte Esterase Negative (Negative) 07/01/19 04:45 Urine Glucose Negative (Negative) 07/01/19 04:45 Urine Ascorbic Acid * (Negative) A 07/01/19 04:45
[2019-07-01] MEDS ORDERED: Ketorolac INJ* 30 MG/ML 1 ML VIAL IV PUSH PRN ×2 (14:18→14:19)
--- NOTE | 2019-07-01 15:24 | DS ---
Orthopedic Discharge Summary - Discharge Summary Date of Admission:06/30/19 Date of Discharge: 07/01/19 Date of Surgery: 06/30/19 Attending Orthopedic Provider: Dr Cramer Pre-operative Diagnosis: left shoulder osteoarthritis Operative Procedure: left anatomic shoulder replacement and open biceps tenodesis Disposition of Patient: home Condition of Patient: stable History: TYRA SANCHEZ SR is a 74 year old M with years of increasingly severe left shoulder pain. Patient has failed conservative management and has elected to undergo a left total shoulder replacement Hospital Course: TYRA was admitted to [facility] on 06/30/19. Patient underwent a left anatomic shoulder replacement and open biceps tenodesis without complication followed by a brief recovery in PACU and transfer to the Short Stay Surgical Unit in stable condition. Physical therapy and occupational therapy also participated in this patients care. Post-op day 1 : patient was alert and in no acute distress. Dressing was clean, dry and intact. f/e wrist and digits intact, NVI distally. Patient had difficulty urinating overnight, quinn was placed and removed in the morning. Anticipate having to replace quinn POD 1 as he was not urinating but patient refused quinn placement and was able to urinate before DC. Home Medications Medication Instructions Recorded Confirmed Type Omeprazole CAP (NF) [Prilosec CAP* 20 mg PO BEDTIME 07/26/13 06/30/19 History 20 MG] Calcium Carbonate/Magnesium Ox 1 tab PO QAM 09/16/13 06/30/19 History [Oyster Shell Calcium-Magnes Tb] Coconut Oil 1,000 mg PO BID 09/16/13 06/30/19 History Glucosamine/Chondroitin/C/Camilo 2 cap PO BID 08/18/14 06/30/19 History [Glucosamine-Chondroitin Capsul] Multivitamin 3 tab PO BID 08/18/14 06/30/19 History Travatan Z 0.004% OPTH (NF) 1 drop LEFT EYE BEDTIME 11/20/17 06/30/19 History Probiotic 1 cap PO QAM 11/24/17 06/30/19 History Tyrosine 1 each PO QAM 01/05/19 06/30/19 History Yohimbe 3 cap PO SEE INSTRUCTIONS 01/05/19 06/30/19 History Acetaminophen [Acetaminophen Extra 500 mg PO Q8H PRN 06/22/19 06/30/19 History Strength] Ascorbic Acid TAB* [Vitamin C 1,000 mg PO BID 06/22/19 06/30/19 History TAB*] Creatine Capsule 5 cap PO SEE INSTRUCTIONS 06/22/19 06/30/19 History Cyanocobalamin TAB* [Vitamin B12 500 mcg PO QAM 06/22/19 06/30/19 History TAB*] Lyposine 3 cap PO SEE INSTRUCTIONS 06/22/19 06/30/19 History Doxazosin TAB* 8 mg PO BEDTIME 06/30/19 06/30/19 History Echinacea 2 cap PO BID 06/30/19 06/30/19 History Fish Oil (NF) 2,000 mg PO BID 06/30/19 06/30/19 History Acetaminophen TAB* [Tylenol TAB*] 975 mg PO Q8HR tab 07/01/19 Rx Docusate CAP* [Colace Cap*] 100 mg PO BID PRN #90 cap 07/01/19 Rx oxyCODONE/Acetamin 5/325 MG* 1 tab PO Q4H PRN tab MDD 8 07/01/19 Rx [Percocet 5/325 TAB*] oxyCODONE/Acetamin 5/325 MG* 2 tab PO Q4H PRN #56 tab MDD 8 07/01/19 Rx [Percocet 5/325 TAB*] Orthopedic Total Shoulder Instruction Non-weight bearing for operative upper extremity. No active range of motion at the shoulder. Continue elbow, wrist, and hand pendulums shown by PT . Wound Care: OK to shower after third post- operative day, no bathing/ swimming / submerging wound. Use gentle soap, pat dry. Cover with gauze, CATIE wrap or tape. Pain control with: percocet 5/325 mg 1-2 tabs by mouth every 4-6 hours max of 8 per day. Please note that percocet contains tylenol (acetaminophen). Maximum daily dose of tylenol is 4000 mg from all sources. Diet: Regular diet, increase fluids and fiber to prevent constipation. Continue to use stool softeners, call office if no bowel motion within 48 hours. Call Orthopedic office for increased drainage, redness, increased pain, or fever. Go to ER with shortness of breath or chest pain. - Antibiotics required prior to any dental work Please call our office with any questions or concerns ([phone] Cramer in 2 weeks, call for appointment Please go to the emergency room if you continue having trouble with urination once you are home. Patient denied quinn placement and was able to urinate prior to DC.
[2019-07-01 16:34] VITALS: BP 119/58
== END 2019-07-01 17:00 | disposition home or self-care (01) | DRG 322 ==
LOC: AA 05:46 → SSU 10:23
PROVIDERS: ADMIT Orthopaedic Surgery; ATTEND Orthopaedic Surgery
PROC: 0LS40ZZ Reposition Left Upper Arm Tendon, Open Approach (ICD-10-PCS; 2019-06-30)
PROC: 0RRK0JZ Replacement of Left Shoulder Joint with Synthetic Substitute, Open Approach (ICD-10-PCS; principal; 2019-06-30 07:30)
DX: M19.012 Primary osteoarthritis, left shoulder (principal); N13.8 Other obstructive and reflux uropathy; K80.10 Calculus of gallbladder with chronic cholecystitis without obstruction; K21.9 Gastro-esophageal reflux disease without esophagitis; G89.29 Other chronic pain; M54.9 Dorsalgia, unspecified; N40.1 Benign prostatic hyperplasia with lower urinary tract symptoms; H91.93 Unspecified hearing loss, bilateral; Z91.041 Radiographic dye allergy status; Z82.49 Family history of ischemic heart disease and other diseases of the circulatory system; Z72.89 Other problems related to lifestyle; Z80.9 Family history of malignant neoplasm, unspecified
CPT/HCPCS: 36415; 80048; 81003; 85014; 85018; 85049; 88304; 88311; A9270-GY; C1776; G8978-GP-CK; G8979-GP-CI; G8987-GO-CJ; G8988-GO-CJ; G8989-GO-CJ; J0690; J1100; J1650; J1885; J2250; J2270; J2405; J2704; J2710; J2765; J2795; J3010

== ENCOUNTER 2022-07-09 07:30 | Observation (INO) ==
[2022-07-10] MEDS ORDERED: Buffered Lidocaine 1% SYRIN 1 ml INTRADERM ONE (06:00)
[2022-07-10] MEDS ORDERED: Lactated Ringers 1000 ml BAG 1,000 ML IV SCH (06:00)
[2022-07-11] MEDS ORDERED: ceFAZolin 2 GM PREMIX 2 GM/50 ML BAG ONE (07:27)
[2022-07-11] MEDS ORDERED: Propofol 0 MG/0 ML BTL ONE (08:46)
[2022-07-11] MEDS ORDERED: Dexamethasone IV 4 MG/ML VIAL 1 ml VIAL ONE (08:47)
[2022-07-11] MEDS ORDERED: Ondansetron 4 mg VIAL 2 MG/ML 2 ml VIAL ONE (08:47)
[2022-07-11] MEDS ORDERED: Lidocaine 2% PF 5 ML VIAL ONE (08:47)
[2022-07-11] MEDS ORDERED: Phenylephrine IV 10 MG/ML 1 ml VIAL ONE (08:47)
[2022-07-11] MEDS ORDERED: fentaNYL 100 mcg/2 ml 50 MCG/ML VIAL ONE ×3 (08:52→10:30)
[2022-07-11] MEDS ORDERED: Midazolam 2 mg/2 ml VIAL 1 mg/ml 2 ml VIAL (2 mg) ONE ×2 (08:52→09:15)
[2022-07-11] MEDS ORDERED: Ropivacaine 5 MG/ML 20 ML VIAL 0.5% (100 MG) ONE (08:53)
[2022-07-11] MEDS ORDERED: ROPIVACAINE 5 MG/ML 30 ML BTL (0.5%) ONE (09:08)
[2022-07-11] MEDS ORDERED: Rocuronium 50 mg VIAL 10 mg/ml 5 ml VIAL (50 mg) ONE (09:15)
[2022-07-11] MEDS ORDERED: Acetaminophen IV 1 GM/100ML 1,000 MG/100 ML BAG IV ONE (10:02)
[2022-07-11] MEDS ORDERED: HYDROmorphone 0.5 MG/0.5 ML SYRINGE ONE ×3 (10:30→11:18)
[2022-07-11] MEDS ORDERED: Naloxone 0.4 mg VIAL 0.4 mg/ml 1 ml VIAL IV PRN (10:45)
[2022-07-11] MEDS ORDERED: fentaNYL 100 mcg/2 ml 50 MCG/ML VIAL IV PRN (10:45)
[2022-07-11] MEDS ORDERED: Ondansetron 4 mg VIAL 2 MG/ML 2 ml VIAL IV PRN ×2 (10:45→12:39)
[2022-07-11] MEDS ORDERED: Propofol 10 MG/ML 20 ML BTL ONE ×2 (10:57→14:27)
[2022-07-11] MEDS ORDERED: Glycopyrrolate IV 0.2 MG/ML 1 ML VIAL ONE (11:39)
[2022-07-11] MEDS ORDERED: Lactulose 30 ml UDC PO PRN (12:39)
[2022-07-11] MEDS ORDERED: Morphine 2 MG/ML SYRINGE IV PRN (12:39)
[2022-07-11] MEDS ORDERED: Ondansetron ODT 4 mg TAB 4 MG TAB PO PRN (12:39)
[2022-07-11] MEDS ORDERED: Magnesium Hydroxide LIQ 30 ML UDC PO PRN (12:39)
[2022-07-11] MEDS ORDERED: ceFAZolin 1 GM ADVAN 1 GM in NS 0.9% 50 ML 50 ML IVPB SCH (13:00)
[2022-07-11] MEDS: Lactated Ringers 1000 ml BAG 1,000 ML IV SCH (14:37)
[2022-07-11] MEDS: ceFAZolin 1 GM ADVAN 1 GM in NS 0.9% 50 ML 50 ML IVPB SCH (18:34)
[2022-07-11] MEDS ORDERED: Latanoprost 0.005% 2.5 ml BTL BOTH EYES SCH (21:00)
[2022-07-11] MEDS: Magnesium Hydroxide LIQ 30 ML UDC PO SCH (21:13)
[2022-07-12] MEDS: Lactated Ringers 1000 ml BAG 1,000 ML IV SCH (01:36)
[2022-07-12] MEDS: ceFAZolin 1 GM ADVAN 1 GM in NS 0.9% 50 ML 50 ML IVPB SCH ×2 (01:36→09:59)
[2022-07-12 05:42] LABS: Hematocrit 35 % (42-52); Hemoglobin 11.7 g/dL (14.0-18.0); Platelet Count 154 10^3/uL (150-450)
[2022-07-12 05:59] LABS: Calcium 8.4 mg/dL (8.6-10.3); Potassium 4.1 mmol/L (3.5-5.0); eGFR CKD-EPI 76.6 (>60)
[2022-07-12] MEDS: Magnesium Hydroxide LIQ 30 ML UDC PO SCH (08:16)
[2022-07-12] MEDS ORDERED: Vitamin THERAPEUTIC TAB PO SCH (09:00)
[2022-07-12 11:03] VITALS: BP 124/68
== END 2022-07-12 12:45 | disposition home or self-care (01) ==
LOC: AA 07-11 07:00 → INTOOBSV 07-11 07:00 → SSU 07-11 14:27
PROVIDERS: ADMIT Orthopaedic Surgery Adult Reconstructive Orthopaedic Surgery; ATTEND Orthopaedic Surgery Adult Reconstructive Orthopaedic Surgery